=== PATIENT | female | born 1995 | race Caucasian/White ===

== ENCOUNTER 2018-09-13 20:35 | Emergency (ER) | payer OTHER ==
[~2018-09-13] VITALS: Ht 170.2 cm; Wt 64.0 kg
[2018-09-13 22:31] LABS: HCG UR SG 1.008 (1.003-1.030); MICROSCOPIC NOT IND
[2018-09-13 22:33] LABS: CULTURE INDICATED? NO
--- NOTE | 2018-09-13 22:34 | NUR ---
FIRST CONTACT WITH PT. PT STATES "I FEEL IUD MIGHT BE OUT OF PLACE." PT C/O BILATERAL ABD PAIN AND VAGINAL DISCHARGE SINCE TODAY. PT'S AOX4. RESPS EVEN AND UNLABORED. BP/SPO2 MONITORS IN PLACE. CALL LIGHT WITHIN REACH. PT'S BOYFRIEND AT BEDSIDE.
--- NOTE | 2018-09-13 23:00 | NUR ---
PELVIC EXAM PERFORMED BY CHASE DELCID, ASSISTED BY THIS RN. LABS COLLECTED BY , WALKED TO LAB BY THIS RN. PT TOLERATED WELL. PT A&O, RESPS EVEN AND UNLABORED. AWAITING LABS AND DISPO AT THIS TIME.
--- NOTE | 2018-09-13 23:17 | NUR ---
PT RESTING IN [facility] [place] PT'S AOX4. RESPS EVEN AND UNLABORED. PT DENIES ANY NEEDS AND CONCERNS AT THIS TIME. AWAITING DISPO AT THIS TIME.
--- NOTE | 2018-09-13 23:17 | NUR ---
Note hossein in ED - 09/13/18 at 2317 by PEBBLES PT RESTING IN [facility]. PT'S AOX4. RESPS EVEN AND UNLABORED. PT DENIES ANY NEEDS AND CONCERNS AT THIS TIME.
[2018-09-13 23:19] LABS: CLUE CELLS NONE SEEN (NONE SEEN); WET PREP WBCS FEW (FEW)
[2018-09-13 23:40] VITALS: BP 111/70
--- NOTE | 2018-09-13 23:44 | NUR ---
PT GIVEN DC INSTRUCTIONS. PT'S AOX4. RESPS EVEN AND UNLABORED. PT'S BOYFRIEND AT BEDSIDE AT DC. PT AMB TO DC WITH STEADY GAIT. NO ACUTE DISTRESS AT DC.
== END 2018-09-13 23:42 | disposition home or self-care (01) ==
LOC: ED 22:51
DX: N89.8 Other specified noninflammatory disorders of vagina (principal); R10.2 Pelvic and perineal pain
CPT/HCPCS: 76830; 81003; 81025; 87210; 87491; 87591; 87808; 99284